=== PATIENT | female | born 1985 | race Hispanic/Latino ===

== ENCOUNTER 2024-12-05 04:15 | Emergency (ER) | payer SELFPAY ==
[~2024-12-05] VITALS: Ht 162.6 cm; Wt 65.8 kg
[2024-12-05 04:17] VITALS: TEMP 97.8
[2024-12-05] MEDS ORDERED: SODIUM CHLORIDE 0.9% 1000ML 1,000 ML ONE (04:26)
[2024-12-05] MEDS ORDERED: ONDANSETRON HCL INJ 2MG/ML 2ML 2 MG/ML VIAL ONE (04:26)
[2024-12-05] MEDS: ONDANSETRON HCL INJ 2MG/ML 2ML 2 MG/ML VIAL IV STA (04:33)
[2024-12-05] MEDS: SODIUM CHLORIDE 0.9% 1000ML 1,000 ML IV STA ×2 (04:33→07:59)
[2024-12-05 04:52] LABS: BASOPHILS % 0.2 % (0.0-1.0); EOSINOPHILS % 0.1 % (0.0-6.0); LYMPHOCYTES % 9.1 % (18.0-39.1); MONOCYTES % 4.8 % (4.4-11.3); NEUTROPHILS % 85.5 % (38.7-80.0); RED CELL DISTRIBUTION WIDTH 15.8 % (11.7-14.4)
[2024-12-05] MEDS: Morphine 4mg INJECTION 4 MG/ML INJ IV PRN (05:06)
[2024-12-05 05:07] LABS: EST GLOMERULAR FILTRATION RATE 112.0 ML/MIN (>=60)
[2024-12-05] MEDS ORDERED: PROMETHAZINE 25MG/SOD CHL 0.9% 50 ML IV ONE (05:08)
[2024-12-05] MEDS: PROMETHAZINE 25MG/ NS 50ML (IV) IV PRN (05:11)
[2024-12-05] MEDS ORDERED: IOPAMIDOL 370 MG/ML 100 ML INFUS..BTL INJ ONE (05:47)
[2024-12-05 06:30] VITALS: PULSE 52; RESP 17
[2024-12-05 07:52] LABS: AMPHETAMINES SCREEN,URINE NEGATIVE (NEGATIVE); CANNABINOIDS SCREEN,URINE NEGATIVE (NEGATIVE); COCAINE SCREEN,URINE NEGATIVE (NEGATIVE); EPITHELIAL CELLS,URINE FEW /LPF; LEUKOCYTE ESTERASE ,URINE NEGATIVE (NEGATIVE); PROTEIN,URINE DIPSTICK NEGATIVE (NEGATIVE); URINE UROBILINOGEN 0.2 mg/dL (0.2 - 1); WBC,URINE (MAN) 0-5 /HPF (0-5)
[2024-12-05 07:53] LABS: METHADONE SCREEN, URINE NEGATIVE (NEGATIVE); OPIATES SCREEN,URINE POSITIVE (NEGATIVE)
[2024-12-05 07:57] LABS: PREGNANCY TEST, URINE NEGATIVE (NEGATIVE)
[2024-12-05] MEDS: DIPHENHYDRAMINE HCL INJ 50 MG/ML VIAL IV ONE (07:59)
[2024-12-05] MEDS: PROMETHAZINE 12.5MG/ NACL 0.9% 12.5 MG/50 ML BAG IV ONE (08:16)
[2024-12-05] MEDS ORDERED: PROMETHAZINE12.5 MG PR (09:26)
[2024-12-05] MEDS ORDERED: DICYCLOMINE HCL20 MG PO (09:26)
[2024-12-05] MEDS ORDERED: ONDANSETRON ODT4 MG PO (09:26)
[2024-12-05 10:06] VITALS: BP 110/66; PULSE 84; RESP 18; O2SAT 100
== END 2024-12-05 09:40 | disposition home or self-care (01) ==
LOC: ER 04:25
DX: R10.13 Epigastric pain (principal); R11.2 Nausea with vomiting, unspecified; R19.7 Diarrhea, unspecified; R94.31 Abnormal electrocardiogram [ECG] [EKG]
CPT/HCPCS: 36415; 74177; 80053; 80307; 81001; 81025; 83690; 84484; 84702; 85025; 93005; 99283; J1200; J2270; J2405; J2470; J2550; J7030; Q9967